=== PATIENT | female | born 1975 | race Caucasian/White ===

== ENCOUNTER 2019-10-21 13:26 | Emergency (ER) | payer MEDICARE, OTHER ==
[~2019-10-21] VITALS: Ht 170.2 cm; Wt 99.8 kg
[2019-10-21 14:08] LABS: BASOPHILS # (AUTO) 0.1 /CMM (0.0-0.2); BASOPHILS % (AUTO) 1.4 % (0.0-2.0); EOSINOPHILS % (AUTO) 1.3 % (0.0-6.0); HEMATOCRIT 41 % (33-45); HEMOGLOBIN 13.2 g/dL (11.5-14.8); LYMPHOCYTES # (AUTO) 3.9 /CMM (0.8-4.8); LYMPHOCYTES % (AUTO) 47.2 % (20.0-44.0); MEAN CORPUSCULAR HGB CONC 33 g/dl (31.0-36.0); MEAN CORPUSCULAR VOLUME 93 fL (82-100); MONOCYTES # (AUTO) 0.5 /CMM (0.1-1.30); NEUTROPHILS # (AUTO) 3.6 /CMM (1.8-8.9); NEUTROPHILS % (AUTO) 44.1 % (43.0-81.0); PLATELET COUNT (AUTO) 307 /CMM (150-450); RED BLOOD CELL COUNT(AUTO) 4.38 MIL/uL (4.0-5.2); WHITE BLOOD COUNT (AUTO) 8.2 K/uL (4.3-11.0)
[2019-10-21 14:15] LABS: CALCIUM, SERUM 8.5 mg/dL (8.5-10.1); CREATININE 0.7 mg/dL (0.6-1.3); POTASSIUM 3.8 mmol/L (3.5-5.1)
--- NOTE | 2019-10-21 14:21 | NUR ---
PT BROUGHT INTO EMERGENCY ROOM FOR OVEERDOSE ON UNKNOWN MEDICATIONS ACCORDING FRIEND PT PLACED IN WHEEL CHAIR AND WAS BROUGHT TO ROOM 5 SLUMPED BACK EYES CLOSED. PT PLACED IN GURNEY LABS DRAWN PLACED ON MONITOR WILL CONTINUE TO FOLLOW.
[2019-10-21 14:22] LABS: ALBUMIN 3.7 g/dL (3.4-5.0); BILIRUBIN,DIRECT 0.1 mg/dL (0.0-0.2); BILIRUBIN,TOTAL 0.3 mg/dL (0.2-1.0); SALICYLATE 3.1 mg/dL (2.8-20.0); TOTAL PROTEIN, SERUM 8.2 g/dL (6.4-8.2)
--- NOTE | 2019-10-21 15:01 | NUR ---
PT ABLE TO EXPRESS NEEDS UP TO BATH ROOM AND BACK WALKING WITH STEADY GAIT. PLACED BACK ON MONITOR AFTER RETURNING TO [facility].
--- NOTE | 2019-10-21 17:36 | NUR ---
PT DISCHARGE TO MOTHER WHO IS HERE TO TAKE PT NASRIN PT UP AND BACK TO BATH ROOM SEVERAL TIMES.
[2019-10-21 17:37] VITALS: BP 131/91
== END 2019-10-21 17:37 | disposition home or self-care (01) ==
LOC: ER 13:26
DX: F10.129 Alcohol abuse with intoxication, unspecified (principal); R41.82 Altered mental status, unspecified; I10 Essential (primary) hypertension; E11.9 Type 2 diabetes mellitus without complications; E66.9 Obesity, unspecified; Y90.8 Blood alcohol level of 240 mg/100 ml or more; Z68.34 Body mass index [BMI] 34.0-34.9, adult
CPT/HCPCS: 36415; 80048; 80076; 80307; 80329; 85025; 99283; G0480

== ENCOUNTER 2019-10-22 12:18 | Emergency (ER) | payer MEDICARE, OTHER ==
[~2019-10-22] VITALS: Ht 170.2 cm; Wt 99.8 kg
[2019-10-22 12:26] VITALS: BP 152/100
== END 2019-10-22 13:28 | disposition home or self-care (01) ==
LOC: ER 12:18
DX: F10.10 Alcohol abuse, uncomplicated (principal); I10 Essential (primary) hypertension; E11.9 Type 2 diabetes mellitus without complications; Y90.9 Presence of alcohol in blood, level not specified

== ENCOUNTER 2022-03-07 12:59 | Emergency (ER) | payer MEDICARE, OTHER ==
[~2022-03-07] VITALS: Ht 157.5 cm; Wt 99.8 kg
[2022-03-07 13:41] VITALS: BP 111/69
[2022-03-07] MEDS ORDERED: MUPIROCIN OINT 2% 22 GM TUBE TP ONE (14:00)
[2022-03-07] MEDS ORDERED: MUPI22OI2 TP (14:02)
[2022-03-07] MEDS ORDERED: CHLO473M5 PO (14:02)
--- NOTE | 2022-03-07 14:09 | NUR ---
Patient discharged to home in stable condition. Written and verbal after care instructions given. Patient verbalizes understanding of instruction.
== END 2022-03-07 14:09 | disposition home or self-care (01) ==
LOC: ER 13:03
DX: L01.00 Impetigo, unspecified (principal); K13.21 Leukoplakia of oral mucosa, including tongue; I10 Essential (primary) hypertension; E11.9 Type 2 diabetes mellitus without complications